=== PATIENT | male | born 1945 | race Caucasian/White ===

== ENCOUNTER → 2021-07-08 | Day surgery (SDC) | payer MEDICARE ==
[~2021-07-08] VITALS: Ht 177.8 cm; Wt 98.0 kg
[~2021-07-08] MED LIST: AMIT50TA PO; AMOX1TAB10 PO; BUPR100T8 PO; ENOX30DI SQ; HYDR12.58 PO; HYDROmorphone 2 MG/ML VIAL IVP PRN; IPRA4AER IH; LISI5TAB15 PO; METF500T16 PO; MORPHINE SULFATE 2 MG/ML INJ. IVP PRN; PIPE3.3734 IV; PRAV40TA2 PO; PROCHLORPERAZINE 10 MG/2 ML VIAL. IVP PRN; PROPOFOL 10 MG/ML (20ML) VIAL. IV ONE; RIVA20TA2 PO; SERT50TA PO; VERA240C2 PO; fentaNYL PF VIAL 100 MCG/2 ML VIAL IVP PRN
[2021-07-08 07:53] VITALS: BP 143/83
[2021-07-08] MEDS: IV RINGERS,LACTATED 1000ML 1,000 ML IV SCH (07:58)
[2021-07-08 09:05] VITALS: BP 127/72
--- NOTE | 2021-07-08 10:42 | CONS ---
DATE OF CONSULTATION: 07/08/2021 UPDATED HISTORY AND PHYSICAL REASON: Dysphagia. REFERRING PHYSICIAN: None. HISTORY: A 76-year-old male whose past medical history is significant for diabetes, hypertension, hyperlipidemia, history of CVAs seen for dysphagia with intermittent meat impactions. He has had ongoing issues with globus sensation. With continued issues, requests additional evaluation. PAST MEDICAL HISTORY: Diabetes, hypertension, hyperlipidemia, status post CVA. ALLERGIES: None. MEDICATIONS: Amitriptyline, amoxicillin, lupreon, adredeol, lisinopril, metformin, pravastatin, Xarelto, sertraline, and verapamil. FAMILY AND SOCIAL HISTORY: Significant for colon polyps with the brother, colon cancer with the dad and brother. Hypertension with the brother. Current smoker and drinker. PAST SURGICAL HISTORY: Noncontributory. REVIEW OF SYSTEMS: Per records. PHYSICAL EXAMINATION: GENERAL: Reveals a well-nourished, well-developed male. VITAL SIGNS: Temperature is 97.8, pulse 86, respiratory rate 20. LUNGS: Clear. CARDIOVASCULAR: Reveals S1, S2, without S3, S4 or appreciable murmur. ABDOMEN: Soft abdomen, normal bowel sounds without appreciable hepatosplenomegaly. IMPRESSION: Dysphagia, etiology is to be determined. Differential includes Schatzki's ring malignancy, achalasia, eosinophilic esophagitis, Blankenship's. Therefore, recommend upper endoscopy with possible biopsy and/or dilatation. Risks and benefits have been previously discussed with preparation and is willing to proceed at this time. ANDREW/ANTHONY DR: Alfredo TID: [id number]
== END | disposition home or self-care (01) ==
LOC: ENDOS 07:21
PROVIDERS: ATTEND Internal Medicine Gastroenterology
DX: R13.10 Dysphagia, unspecified (principal); K63.89 Other specified diseases of intestine; E11.9 Type 2 diabetes mellitus without complications; I48.91 Unspecified atrial fibrillation; E78.00 Pure hypercholesterolemia, unspecified; I25.10 Atherosclerotic heart disease of native coronary artery without angina pectoris; I11.0 Hypertensive heart disease with heart failure; I50.9 Heart failure, unspecified; J43.9 Emphysema, unspecified; M19.90 Unspecified osteoarthritis, unspecified site; F32.9 Major depressive disorder, single episode, unspecified; Z86.73 Personal history of transient ischemic attack (TIA), and cerebral infarction without residual deficits; Z87.891 Personal history of nicotine dependence; Z79.84 Long term (current) use of oral hypoglycemic drugs; Z79.899 Other long term (current) drug therapy; Z98.890 Other specified postprocedural states; Z80.0 Family history of malignant neoplasm of digestive organs; Z82.49 Family history of ischemic heart disease and other diseases of the circulatory system
CPT/HCPCS: 43235; 43450; J2704